=== PATIENT | male | born 1985 | race Caucasian/White ===

== ENCOUNTER → 2016-08-09 | Outpatient (CLI) | payer BC, MEDICAID ==
--- NOTE | 2016-08-09 13:32 | CR ---
EXAMINATION: Left wrist HISTORY: Injury COMPARISON: None TECHNIQUE: 4 views FINDINGS/IMPRESSION: No definite acute osseous abnormality, dislocation, or fracture identified. Bon e mineralization and joint spaces are grossly preserved. Radiocarpal alignment is normal.
--- NOTE | 2016-08-09 15:58 | CR ---
EXAMINATION: Right shoulder HISTORY: Pain COMPARISON: None TECHNIQUE: 3 views FINDINGS/IMPRESSION: There is no acute osseous abnormality, dislocation, or fracture identified. Bon e mineralization and joint spaces appear normal.
== END ==
LOC: MW.CHPS 09:22
PROVIDERS: ATTEND Physician Assistant
DX: M25.511 Pain in right shoulder (principal); S69.92XA Unspecified injury of left wrist, hand and finger(s), initial encounter
CPT/HCPCS: 73030-26-RT; 73030-RT; 73110-26-LT; 73110-LT

== ENCOUNTER 2019-06-07 02:55 | Emergency (ER) | payer SELFPAY ==
--- NOTE | 2019-06-07 03:11 | EDM.PDOC ---
ED HPI GENERAL MEDICAL PROBLEM - General Chief Complaint: General Stated Complaint: MEDICAL CLEARANCE Time Seen by Provider: 06/07/19 03:03 Source of Information: Reports: Patient History Limitations: Reports: No Limitations - History of Present Illness INITIAL COMMENTS - FREE TEXT/NARRATIVE: This is a 33-year-old gentleman who presents the emergency room with a chief complaint of needing his blood pressure checked. Patient is here for medical clearance for possible blood pressure issues. Patient is asymptomatic. Patient has no chest pain, no headache, no shortness of breath, no swelling, no urinary symptoms. Onset: Today Duration: Chronic Location: Reports: Head Quality: Reports: Other (Patient has no pain and is asymptomatic) Improves with: Reports: None Worsens with: Reports: None Associated Symptoms: Reports: No Other Symptoms - Related Data Allergies Allergy/AdvReac Type Severity Reaction Status Date / Time No Known Allergies Allergy Verified 06/07/19 02:57 Home Meds: Home Meds . [No Known Home Meds] 06/07/19 [History] Past Medical History Cardiovascular History: Reports: Hypertension - Infectious Disease History Infectious Disease History: Reports: Chicken Pox, Hepatitis C - Past Surgical History HEENT Surgical History: Reports: Oral Surgery GI Surgical History: Reports: Hernia, Abdominal Social & Family History - Family History Family Medical History: Noncontributory - Tobacco Use Smoking Status *Q: Current Every Day Smoker Years of Tobacco use: 21 Packs/Tins Daily: 0.5 - Caffeine Use Caffeine Use: Reports: Coffee, Soda - Recreational Drug Use Recreational Drug Use: Yes Recreational Drug Type: Reports: Marijuana/Hashish ED ROS GENERAL - Review of Systems Review Of Systems: See Below Constitutional: Reports: No Symptoms HEENT: Reports: No Symptoms Respiratory: Reports: No Symptoms Cardiovascular: Reports: Blood Pressure Problem Endocrine: Reports: No Symptoms GI/Abdominal: Reports: No Symptoms : Reports: No Symptoms Musculoskeletal: Reports: No Symptoms Skin: Reports: No Symptoms Neurological: Reports: No Symptoms Psychiatric: Reports: No Symptoms Hematologic/Lymphatic: Reports: No Symptoms Immunologic: Reports: No Symptoms ED EXAM, GENERAL - Physical Exam Exam: See Below Free Text/Narrative:: This 33-year-old gentleman presents to the emergency room for possible blood pressure issues. Patient is asymptomatic at this time Exam: Patient is awake alert and without any symptoms HEENT is normal Lungs are to auscultation throughout Cardiac: Patient has a normal S1-S2 no murmurs no gallops no rubs. Abdomen: Patient has no pain/no masses Exam Limited By: No Limitations General Appearance: Alert, WD/WN, No Apparent Distress Eye Exam: Bilateral Eye: Normal Fundi, Normal Inspection Throat/Mouth: Normal Inspection Head: Atraumatic, Normocephalic Neck: Normal Inspection Respiratory/Chest: No Respiratory Distress, Lungs Clear, Normal Breath Sounds, No Accessory Muscle Use, Chest Non-Tender Cardiovascular: Normal Peripheral Pulses, No Edema, No Gallop, No JVD, No Murmur , No Rub GI/Abdominal: Normal Bowel Sounds, Soft, Non-Tender, No Distention, No Abnormal Bruit (Male) Exam: Deferred Rectal (Males) Exam: Deferred Back Exam: Normal Inspection, Full Range of Motion Extremities: Normal Inspection, Normal Range of Motion, No Pedal Edema Neurological: Alert, Oriented Psychiatric: Normal Affect, Normal Mood Skin Exam: Warm, Dry, Intact Course - Vital Signs Text/Narrative:: 33-year-old male is now cleared for incarceration. Patient is asymptomatic blood pressure is slightly elevated 140/80 Last Recorded V/S: Last Vital Signs Temp 97.3 F 06/07/19 02:58 Pulse 98 06/07/19 02:58 Resp 17 06/07/19 02:58 BP 145/77 H 06/07/19 02:58 Pulse Ox 98 06/07/19 02:58 Departure - Departure Time of Disposition: 03:13 Disposition: Home, Self-Care 01 Condition: Good Clinical Impression: Hypertension screening - Discharge Information Instructions: Hypertension, [id number] Additional Instructions: #1. Patient instructed to follow-up with primary care physician for recheck of hypertension Sepsis Event Note - Evaluation Sepsis Screening Result: No Definite Risk - Focused Exam Vital Signs: Vital Signs Temp Pulse Resp BP Pulse Ox 06/07/19 02:58 97.3 F 98 17 145/77 H 98 Date Exam was Performed: 06/07/19 Time Exam was Performed: 03:06
== END 2019-06-07 03:17 ==
LOC: MW.ED 02:55
DX: Z01.30 Encounter for examination of blood pressure without abnormal findings (principal); F17.210 Nicotine dependence, cigarettes, uncomplicated
CPT/HCPCS: 99282